=== PATIENT | female | born 1955 | race Caucasian/White ===

== ENCOUNTER → 2016-12-14 | Outpatient (CLI) | payer BC ==
--- NOTE | 2016-12-14 09:17 | RAD ---
Chest, 2 views, 12/14/2016: History: Follow-up lung masses No previous chest radiograph is available at this time for comparison purposes. The heart size and pulmonary vascularity are normal. No pulmonary infiltrates are seen. There is no evidence of pleural fluid. IMPRESSION: No acute cardiopulmonary abnormality is detected.
--- NOTE | 2016-12-14 09:41 | RAD ---
DATE: 12/14/2016 EXAM: DIGITAL SCREEN BILAT W/CAD HISTORY: Screening COMPARISON: None This study was interpreted with the benefit of Computerized Aided Detection (CAD). FINDINGS: Breast Density: SCATTERED The breast parenchyma shows scattered fibroglandular densities. Breast parenchyma level B. There is an asymmetric density in the right breast. There is increased density in the subareolar position of the right breast relative to the left. This probably reflects a normal variant but coned compression imaging and targeted ultrasound to the subareolar position of the right breast is suggested for confirmation. The left breast appears unremarkable. No suspect calcifications are seen in either breast. IMPRESSION: Asymmetric density. There is increased density in the subareolar position of the right breast relative to the left. [facility] compression imaging and targeted ultrasound are advised. BI-RADS CATEGORY: 0 INCOMPLETE: NEED ADDITIONAL IMAGING EVAULATION AND/OR PRIOR MAMMOGRAMS FOR COMPARISON RECOMMENDED FOLLOW-UP: ADD ADDITIONAL IMAGING PQRS compliance statement: Patient information was entered into a reminder system with a target due date soon for the next mammogram. Mammography is a sensitive method for finding small breast cancers, but it does not detect them all and is not a substitute for careful clinical examination. A negative mammogram does not negate a clinically suspicious finding and should not result in delay in biopsying a clinically suspicious abnormality. "Our facility is accredited by the [employer] Mammography [employer]."
== END | disposition home or self-care (01) ==
LOC: MAMMO 08:23
PROVIDERS: ATTEND Family Medicine
DX: Z12.31 Encounter for screening mammogram for malignant neoplasm of breast (principal); R91.8 Other nonspecific abnormal finding of lung field
CPT/HCPCS: 71020; G0202; 77067

== ENCOUNTER → 2016-12-30 | Outpatient (CLI) | payer BC ==
--- NOTE | 2016-12-30 14:25 | RAD ---
DATE: 12/30/2016 EXAM: DIGITAL DIAGNOSTIC RT, BREAST RIGHT HISTORY: Suspicious screening study COMPARISON: 12/14/2016 This study was interpreted with the benefit of Computerized Aided Detection (CAD). The breast parenchyma is heterogeneously dense, which could reduce sensitivity of mammography. Breast parenchyma level C. FINDINGS: Additional views of the right breast were obtained and correlated with the screening images. The fibroglandular tissues in the retroareolar region of both breasts are heterogeneously dense. There is mild persistent asymmetric increased density in the right retroareolar region centered just lateral and superior to the midline. The spot compression cc view demonstrates mildly prominent ducts in this region. No discrete mass is seen. Right breast ultrasound, 12/30/2016: A targeted ultrasound exam of the right breast was performed in the retroareolar region. Mildly prominent ducts are identified in the upper outer quadrant. Several of these ducts contain echogenic debris. No color flow is seen within the ducts. Comparison with the left side confirms that these ducts are relatively enlarged. No mass is identified in the right retroareolar region. IMPRESSION: The mild right retroareolar mammographic asymmetry is due to mildly enlarged ducts centered at approximately the 10:00 location. Some of these ducts contain echogenic debris without evidence of a discrete mass. Mammographic and sonographic surveillance beginning in 6 months is suggested to confirm stability. BI-RADS CATEGORY: 3 PROBABLY BENIGN FINDING(S)-SHORT INTERVAL FOLLOW-UP SUGGESTED RECOMMENDED FOLLOW-UP: 6M 6 MONTH FOLLOW-UP PQRS compliance statement: Patient information was entered into a reminder system with a target due date for the next mammogram. Mammography is a sensitive method for finding small breast cancers, but it does not detect them all and is not a substitute for careful clinical examination. A negative mammogram does not negate a clinically suspicious finding and should not result in delay in biopsying a clinically suspicious abnormality. "Our facility is accredited by the [employer] Mammography [employer]."
== END | disposition home or self-care (01) ==
LOC: MAMMO 12:54
PROVIDERS: ATTEND Family Medicine
DX: R92.8 Other abnormal and inconclusive findings on diagnostic imaging of breast (principal)
CPT/HCPCS: 76641; G0206; 77065